=== PATIENT | female | born 1985 | race Hispanic/Latino ===

== ENCOUNTER 2017-12-02 16:20 | Emergency (ER) | payer BC, OTHER ==
[2017-12-02] MEDS ORDERED: KETOROLAC 30 MG/ML INJ ONE (17:28)
[2017-12-02] MEDS ORDERED: NA CHLORIDE 0.9% 1,000 ML ONE (17:31)
[2017-12-02 17:47] LABS: Urine Bacteria <20 /HPF (<20); Urine Culture Reflex Order NOT NEEDED
[2017-12-02 17:48] LABS: Urine Blood TRACE (NEG); Urine Glucose NEGATIVE (NEG); Urine Protein NEGATIVE (NEG); Urine Specific Gravity 1.005 (1.005-1.030); Urine pH 5.5 (5.0-7.0)
[2017-12-02 18:01] LABS: Hematocrit 33.4 % (36.0-45.0); MCH 28.5 pg (27.0-35.0); MCV 83.7 fL (80-100); RBC Red Blood Cell Count 3.99 M/uL (3.86-4.86)
[2017-12-02 18:02] LABS: Absolute Lymphocytes (CBC) 1.7 K/uL (0.7-4.9); Absolute Monocytes 0.8 K/uL (0.1-1.3); Absolute Neutrophil 10.8 K/uL (1.8-8.0); Basophils % 0.4 % (0-1.3); Eosinophils % 0.4 % (0-4.4); Lymphocytes % 12.5 % (15.3-44.8); Monocytes % 5.9 % (3.3-12.3)
[2017-12-02 18:24] LABS: ALT/SGPT 15 U/L (12-78); AST/SGOT 15 U/L (15-37); Albumin 3.7 g/dL (3.4-5.0); Alkaline Phosphatase 96 U/L (45-117); BUN Blood Urea Nitrogen 6 mg/dL (7-18); Bicarbonate 25 mmol/L (21-32); Bilirubin Direct 0.1 mg/dL (0-0.2); Bilirubin Total 0.4 mg/dL (0.2-1.0); Glucose Level 101 mg/dL (74-106); Lipase 68 U/L (73-393); Potassium 3.5 mmol/L (3.5-5.1); Protein, Total 7.7 g/dL (6.4-8.2); Sodium Level 139 mmol/L (136-145)
--- NOTE | 2017-12-02 18:51 | RAD REPORT ---
EXAM DESCRIPTION: CTAbdomen Pelvis W Contrast - 12/02/2017 6:42 pm CLINICAL HISTORY: Abdominal pain. lower abdomen pain COMPARISON: <Comparisons> TECHNIQUE: Biphasic CT imaging of the abdomen and pelvis was performed with 100 ml non-ionic IV cont rast. All CT scans are performed using dose optimization technique as appropriate and may include automated exposure control or mA/KV adjustment according to patient size. FINDINGS: The lung bases are clear. The liver demonstrates diffuse fatty infiltration. The spleen, pancreas, adrenal glands and kidneys a re within normal limits. No bowel obstruction, free air, intra-abdominal free fluid or abscess. Multiple diverticula are prese nt extending from the sigmoid colon. [id number] surrounding inflammatory changes are present wi th trace fluid in the pelvis. The appendix is normal. No evidence of significant lymphadenopathy. No suspicious bony findings. IMPRESSION: Mild to moderate acute sigmoid diverticulitis. No abscess or other complication identifi ed.
--- NOTE | 2017-12-02 19:17 | EDPHYS ---
Physician Documentation [facility] Name: Shahana Ibarra Age: 32 yrs Sex: Female : 1985 Arrival Date: 12/02/2017 Time: 16:23 Bed 5 Private MD: None, None ED Physician Sal Pires HPI: 12/02 16:50 This 32 yrs old Female presents to ER via Ambulatory with complaints of Back cp Pain, Abdominal Pain. 16:50 The patient presents with abdominal pain in the lower abdomen. Onset: The cp symptoms/episode began/occurred 2 day(s) ago. The symptoms radiate to low back area. Associated signs and symptoms: Pertinent positives: nausea, Pertinent negatives: blood in stools, chest pain, constipation, diarrhea, dysuria, fever, shortness of breath, vaginal discharge, vomiting. The symptoms are described as constant. Severity of pain: in the emergency department the pain is unchanged despite home interventions. 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 - Social history:: Smoking status: Patient/guardian denies using tobacco. - Ebola Screening: : Patient negative for fever greater than or equal to 101.5 degrees Fahrenheit, and additional compatible Ebola Virus Disease symptoms Patient denies exposure to infectious person Patient denies travel to an Ebola-affected area in the 21 days before illness onset No symptoms or risks identified at this time. ROS: 17:00 Constitutional: Negative for body aches, chills, fever, poor PO intake. cp 17:00 Eyes: Negative for injury, pain, redness, and discharge. cp 17:00 ENT: Negative for drainage from ear(s), ear pain, sore throat, difficulty swallowing, difficulty handling secretions. 17:00 Cardiovascular: Negative for chest pain, palpitations. 17:00 Respiratory: Negative for cough, shortness of breath, wheezing. 17:00 Abdomen/GI: Positive for abdominal pain, nausea, Negative for vomiting, diarrhea, constipation, black/tarry stool, rectal bleeding. 17:00 Back: Positive for radiated pain. 17:00 : Negative for urinary symptoms, pelvic pain, vaginal bleeding, vaginal discharge. 17:00 Skin: Negative for cellulitis, rash. 17:00 Neuro: Negative for altered mental status, dizziness, headache, weakness. 17:00 All other systems are negative. Exam: 17:05 Constitutional: The patient appears in no acute distress, alert, awake, non-toxic, well cp developed, well nourished. 17:05 Head/Face: Normocephalic, atraumatic. Eyes: Pupils equal round and reactive to light, cp extra-ocular motions intact. Lids and lashes normal. Conjunctiva and sclera are non-icteric and not injected. Cornea within normal limits. Periorbital areas with no swelling, redness, or edema. ENT: Nares patent. No nasal discharge, no septal abnormalities noted. Tympanic membranes are normal and external auditory canals are clear. Oropharynx with no redness, swelling, or masses, exudates, or evidence of obstruction, uvula midline. Mucous membranes moist. Neck: Trachea midline, no thyromegaly or masses palpated, and no cervical lymphadenopathy. Supple, full range of motion without nuchal rigidity, or vertebral point tenderness. No Meningismus. Chest/axilla: Normal chest wall appearance and motion. Nontender with no deformity. No lesions are appreciated. 17:05 Cardiovascular: Rate: tachycardic, Rhythm: regular, Edema: is not appreciated, JVD: is not appreciated. 17:05 Respiratory: the patient does not display signs of respiratory distress, Respirations: normal, no use of accessory muscles, no retractions, no splinting, no tachypnea, labored breathing, is not present, Breath sounds: are clear throughout, no decreased breath sounds, no stridor, no wheezing. 17:05 Abdomen/GI: Inspection: abdomen appears normal, Bowel sounds: active, all quadrants, Palpation: soft, in all quadrants, moderate abdominal tenderness, in the right lower quadrant and left lower quadrant, rebound tenderness, is not appreciated, voluntary guarding, is not appreciated, involuntary guarding, is not appreciated. 17:05 Back: pain, that is moderate, of the low back area, CVA tenderness, is absent, muscle spasm, is not present, Straight leg raises: of both lower extremities does not illicit pain. 17:05 Skin: cellulitis, is not appreciated, no rash present. Vital Signs: 16:34 BP 130 / 70; Pulse 125; Resp 18; Pulse Ox 100% on R/A; Weight 81.65 kg; Height 5 ft. 1 ch in. (154.94 cm); Pain 5/10; 17:03 Temp 98.6(O); ch 17:31 BP 126 / 68; Pulse 112; Resp 18; Temp 97.9; Pulse Ox 99% on R/A; Pain 7/10; ch 18:54 BP 138 / 81; Pulse 108; Resp 18; Temp 98.3; Pulse Ox 99% on R/A; Pain 6/10; ch 19:47 BP 115 / 66; Pulse 91; Resp 18; Pulse Ox 98% on R/A; tl2 20:28 BP 106 / 68; Pulse 86; Resp 18; Pulse Ox 99% on R/A; Pain 2/10; tl2 16:34 Body Mass Index 34.01 (81.65 kg, 154.94 cm) ch MDM: 16:42 Patient medically screened. cp 18:00 Differential diagnosis: appendicitis, bowel obstruction, diverticulitis, Ectopic cp , Endometriosis, gastritis, Ovarian Torsion, Pelvic Inflammatory Disease, Pyelonephritis, Ureterolithiasis, urinary tract infection. 19:15 Data reviewed: vital signs, nurses notes, lab test result(s), radiologic studies, CT cp scan, and as a result, I will discharge patient. 19:15 Counseling: I had a detailed discussion with the patient and/or guardian regarding: the cp historical points, exam findings, and any diagnostic results supporting the discharge/admit diagnosis, lab results, radiology results, the need for outpatient follow up, a ophthalmology technician, to return to the emergency department if symptoms worsen or persist or if there are any questions or concerns that arise at home. Response to treatment: the patient's symptoms have markedly improved after treatment, VSS. Pain improved and patient tolerating po meds and fluids, and as a result, I will discharge patient. 12/02 16:43 Order name: Urine Dipstick--Ancillary (enter results); Complete Time: 18:32 eb 12/02 18:32 Interpretation: Normal except: UBLD TRACE. cp 12/02 17:02 Order name: Urine Microscopic Only; Complete Time: 18:32 cp 12/02 17:02 Order name: Basic Metabolic Panel; Complete Time: 18:32 cp 12/02 18:32 Interpretation: Normal except: BUN 6; CRE 0.50. cp 12/02 17:02 Order name: CBC with Diff; Complete Time: 18:32 cp 12/02 18:33 Interpretation: Normal except: WBC 13.4; HGB 11.4; HCT 33.4; MCV 83.7; MPV 7.0; ANDREW% cp 80.8; LYM% 12.5; NEUT A 10.8. 12/02 17:02 Order name: Creatinine for Radiology; Complete Time: 18:32 cp 12/02 17:02 Order name: Hepatic Function; Complete Time: 18:32 cp 12/02 17:02 Order name: Urine Test (obtain specimen); Complete Time: 17:04 cp 12/02 17:02 Order name: Lipase; Complete Time: 18:32 cp 12/02 17:02 Order name: CT Abd/Pelvis - W/Contrast: no oral contrast; Complete Time: 18:55 cp 12/02 17:03 Order name: Test, Serum; Complete Time: 18:32 ch 12/02 17:02 Order name: IV Saline Lock; Complete Time: 18:56 cp 12/02 17:02 Order name: Labs collected and sent; Complete Time: 18:56 cp 12/02 19:09 Order name: PO challenge; Complete Time: 19:45 cp Administered Medications: 17:33 Drug: NS 0.9% 1000 ml Route: IV; Rate: 1 bolus; Site: right forearm; ch 20:31 Follow up: IV Status: Completed infusion; IV Intake: 1000ml tl2 17:33 Drug: TORadol 30 mg Route: IVP; Site: right forearm; ch 19:46 Drug: metroNIDAZOLE 500 mg Volume: 100 ml; Route: IVPB; Infused Over: 30 mins; Site: tl2 right forearm; 20:31 Follow up: IV Status: Completed infusion; IV Intake: 100ml tl2 19:46 Drug: Cipro 500 mg Route: PO; tl2 20:31 Follow up: Response: No adverse reaction tl2 Disposition: 12/02/17 19:16 Discharged to Home. Impression: Diverticulitis of large intestine without perforation or abscess without bleeding. - Condition is Stable. - Discharge Instructions: Clear Liquid Diet, Adult, High-Fiber Diet, Diverticulitis. - Prescriptions for Tylenol- Codeine #3 300-30 mg Oral Tablet - take 2 tablets by ORAL route every 6 hours As needed; 15 tablet. Zofran 4 mg Oral Tablet - take 1 tablet by ORAL route every 12 hours As needed; 20 tablet. Cipro 500 mg Oral Tablet - take 1 tablet by ORAL route every 12 hours for 7 days; 14 tablet. Metronidazole 500 mg Oral Tablet - take 1 tablet by ORAL route every 8 hours; 30 tablet. - Medication Reconciliation Form, Thank You Letter, Antibiotic Education, Prescription Opioid Use form. - Follow up: Jarrell Solorzano MD; When: 2 - 3 days; Reason: diverticulitis. - Problem is new. - Symptoms have improved. Addendum: 12/04/2017 07:16 Co-signature as Attending Physician, Sal Pires MD I agree with the assessment and c mackay plan of care. Signatures: Dispatcher [employer] EDStefanie Otero, RN RN Sal Mcnulty MD MD cha Page, Corey, PA PA cp Ekaterina Regalado RN RN tl2 Corrections: (The following items were deleted from the chart) 12/02 20:31 19:16 12/02/2017 19:16 Discharged to Home. Impression: Diverticulitis of large tl2 intestine without perforation or abscess without bleeding. Condition is Stable. Forms are Medication Reconciliation Form, Thank You Letter, Antibiotic Education, Prescription Opioid Use. Follow up: Jarrell Solorzano; When: 2 - 3 days; Reason: diverticulitis. Problem is new. Symptoms have improved. cp
--- NOTE | 2017-12-02 19:17 | ER ---
Nurse's Notes [facility] Name: Shahana Ibarra Age: 32 yrs Sex: Female : 1985 Arrival Date: 12/02/2017 Time: 16:23 Bed 5 Private MD: None, None Diagnosis: Diverticulitis of large intestine without perforation or abscess without bleeding Presentation: 12/02 16:32 Presenting complaint: Patient states: lower abdominal pain and lower back pain for the ch past 2 days, getting worse. denies nvd, pt states she now has urinary frequency, denies other urinary symptoms. Transition of care: patient was not received from another setting of care. Onset of symptoms was November 30, 2017. Risk Assessment: Do you want to hurt yourself or someone else? Patient reports no desire to harm self or others. Initial Sepsis Screen: Does the patient meet any 2 criteria? Temp <36.0*C (96.8*F)) or > 38.3*C (100.4*F). HR > 90 bpm. Does the patient have a suspected source of infection? Yes: Dysuria/Frequency/Urgency/UTI. Care prior to arrival: None. 16:32 Method Of Arrival: Ambulatory 16:32 Acuity: ELIZABETH 3 Triage Assessment: 16:34 General: Appears in no apparent distress. comfortable, Behavior is calm, cooperative, ch appropriate for age. Pain: Complains of pain in low back area, suprapubic area and right lower quadrant Pain currently is 5 out of 10 on a pain scale. at worst was 9 out of 10 on a pain scale. Neuro: No deficits noted. Respiratory: No deficits noted. Airway is patent Respiratory effort is even, unlabored, Breath sounds are clear bilaterally. : Reports pain in suprapubic area in lower back. Derm: Skin is pink, warm \T\ dry. Musculoskeletal: Capillary refill < 3 seconds, in bilateral fingers. toes. Range of motion: intact in all extremities. 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 - Social history:: Smoking status: Patient/guardian denies using tobacco. - Ebola Screening: : Patient negative for fever greater than or equal to 101.5 degrees Fahrenheit, and additional compatible Ebola Virus Disease symptoms Patient denies exposure to infectious person Patient denies travel to an Ebola-affected area in the 21 days before illness onset No symptoms or risks identified at this time. Screenin:36 Abuse screen: Denies threats or abuse. Denies injuries from another. Nutritional ch screening: No deficits noted. Tuberculosis screening: No symptoms or risk factors identified. Fall Risk None identified. Assessment: 16:36 General: Appears in no apparent distress. comfortable, Behavior is calm, cooperative, ch appropriate for age. Neuro: No deficits noted. 17:31 Reassessment: Patient appears in no apparent distress at this time. Patient and/or ch family updated on plan of care and expected duration. Pain level reassessed. Patient is alert, oriented x 3, equal unlabored respirations, skin warm/dry/pink. pt c/o increase in pain, medicated per orders. 17:44 Reassessment: Herve brown to draw blood twice, unsuccessful. Lab contacted. no s/s of ch distress. 18:54 Reassessment: Patient appears in no apparent distress at this time. Patient and/or ch family updated on plan of care and expected duration. Pain level reassessed. Patient is alert, oriented x 3, equal unlabored respirations, skin warm/dry/pink. Patient states feeling better. Patient states symptoms have improved. Neuro: No deficits noted. Level of Consciousness is awake, alert, obeys commands, Oriented to person, place, time, situation. 19:47 Reassessment: Patient appears in no apparent distress at this time. Patient and/or tl2 family updated on plan of care and expected duration. Pain level reassessed. Patient is alert, oriented x 3, equal unlabored respirations, skin warm/dry/pink. Will discharge pt after antibiotic and bolus NS have completed. 20:28 Reassessment: Patient appears in no apparent distress at this time. Patient and/or tl2 family updated on plan of care and expected duration. Pain level reassessed. Patient is alert, oriented x 3, equal unlabored respirations, skin warm/dry/pink. Pt verbalized understanding of discharge instructions, need for follow up and prescription usage Patient states feeling better. Vital Signs: 16:34 BP 130 / 70; Pulse 125; Resp 18; Pulse Ox 100% on R/A; Weight 81.65 kg; Height 5 ft. 1 ch in. (154.94 cm); Pain 5/10; 17:03 Temp 98.6(O); ch 17:31 BP 126 / 68; Pulse 112; Resp 18; Temp 97.9; Pulse Ox 99% on R/A; Pain 7/10; ch 18:54 BP 138 / 81; Pulse 108; Resp 18; Temp 98.3; Pulse Ox 99% on R/A; Pain 6/10; ch 19:47 BP 115 / 66; Pulse 91; Resp 18; Pulse Ox 98% on R/A; tl2 20:28 BP 106 / 68; Pulse 86; Resp 18; Pulse Ox 99% on R/A; Pain 2/10; tl2 16:34 Body Mass Index 34.01 (81.65 kg, 154.94 cm) ED Course: 16:23 Patient arrived in ED. mr 16:23 None, None is Private Physician. mr 16:31 Stefanie Subramanian, RN is Primary Nurse. ch 16:33 Triage completed. ch 16:34 Arm band placed on left wrist. Patient placed in an exam room, on a stretcher, on pulse ch oximetry. 16:36 No apparent distress. Resting quietly. ch 16:36 Patient has correct armband on for positive identification. Placed in gown. Bed in low ch position. Call light in reach. Side rails up X 1. Adult w/ patient. Pulse ox on. NIBP on. 16:36 No provider procedures requiring assistance completed. ch 16:42 Sal James PA is PHCP. cp 16:42 Theron Ndiaye MD is Attending Physician. cp 17:02 Urine collected: clean catch specimen, cloudy, mary kate colored. jb1 17:11 Radiology exam delayed due to lab results not completed at this time. (BUN/Creatinine) sw test not completed at this time. 17:31 Inserted saline lock: 20 gauge in right forearm, using aseptic technique. Missed ch attempt(s): 18 gauge in left antecubital area. Bleeding controlled, band aid applied, catheter tip intact. 17:33 Urine Microscopic Only Sent. ch 17:34 Urine Dipstick--Ancillary (enter results) Sent. 17:45 Radiology exam delayed due to lab results not completed at this time. (BUN/Creatinine). 18:07 Radiology exam delayed due to lab results not completed at this time. (BUN/Creatinine). 18:42 Attending Physician role handed off by Theron Ndiaye MD [facility] 18:42 Sal Pires MD is Attending Physician. [facility] 18:42 CT completed. Patient tolerated procedure well. Patient moved to CT. Patient moved back oh from CT. 18:42 CT Abd/Pelvis - W/Contrast: no oral contrast In Process Unspecified. EDMS 18:54 No apparent distress. Resting quietly. 19:07 Report given to Ekaterina. 19:14 Ekaterina Regalado RN is Primary Nurse. tl2 19:15 Jarrell Solorzano MD is Referral Physician. 19:47 IV is patent, with fluids infusing freely. tl2 20:28 IV discontinued, intact, bleeding controlled, No redness/swelling at site. Pressure tl2 dressing applied. Administered Medications: 17:33 Drug: NS 0.9% 1000 ml Route: IV; Rate: 1 bolus; Site: right forearm; 20:31 Follow up: IV Status: Completed infusion; IV Intake: 1000ml tl2 17:33 Drug: TORadol 30 mg Route: IVP; Site: right forearm; 19:46 Drug: metroNIDAZOLE 500 mg Volume: 100 ml; Route: IVPB; Infused Over: 30 mins; Site: tl2 right forearm; 20:31 Follow up: IV Status: Completed infusion; IV Intake: 100ml tl2 19:46 Drug: Cipro 500 mg Route: PO; tl2 20:31 Follow up: Response: No adverse reaction tl2 Intake: 20:31 IV: 100ml; Total: 100ml. tl2 20:31 IV: 1000ml; Total: 1100ml. tl2 Outcome: 19:16 Discharge ordered by . cp 20:28 Discharged to home ambulatory, with family. tl2 20:28 Condition: stable 20:28 Discharge instructions given to patient, Instructed on discharge instructions, follow up and referral plans. medication usage, Demonstrated understanding of instructions, follow-up care, medications, Prescriptions given X 4. 20:31 Patient left the ED. tl2 Signatures: Dispatcher [employer] EDMS Herve Sorto1 Stefanie Subramanian, RN RN Sal Mcnulty MD MD cha Rivera, Maria mr Alex, Staci Sal Angulo PA PA cp Knox, Taylor, RN RN tl2 Nicholas Glover Corrections: (The following items were deleted from the chart) 19:46 19:45 metroNIDAZOLE 500 mg 100 ml IVPB in left wrist over 30 mins 100 ml tl2 tl2
[2017-12-02] MEDS ORDERED: METRONIDAZOLE 500mg IVPB 500 MG/100 ML BAG IV ONE (19:24)
[2017-12-02] MEDS ORDERED: CIPROFLOXACIN HCL 500 MG TAB ONE (19:24)
[2017-12-02 20:49] VITALS: TEMP 98.3
[2017-12-02 20:51] VITALS: BP 106/68; O2SAT 99
== END 2017-12-02 20:31 | disposition home or self-care (01) ==
LOC: ER 16:20
DX: K57.32 Diverticulitis of large intestine without perforation or abscess without bleeding (principal)
CPT/HCPCS: 36415; 74177; 80048; 80076; 81003; 81015; 83690; 84703; 85025; 96361; 96365; 96375; 99284; J7030; Q9967